=== PATIENT | male | born 1980 | race Caucasian/White ===

== ENCOUNTER 2017-11-05 07:47 | Day surgery (SDC) | payer BC ==
[~2017-11-05 07:47] MED LIST: Lidocaine 2% 5 ML SDV ONE; Midazolam 1 MG/ML 2 ML SDV ONE; Ondansetron 4 MG/2 ML SDV ONE; Propofol 200 MG/20 ML SDV ONE; fentaNYL 100 MCG/2 ML SDV ONE
[2017-11-05] MEDS ORDERED: Lactated Ringers 1,000 ML IV SCH (08:00)
[2017-11-05] MEDS ORDERED: Acetaminophen/HYDROcodone 325-5 MG Tab PO PRN (08:00)
[2017-11-05] MEDS ORDERED: Bupivacaine 0.25%/EPINEPHrine 1:200,000 10 ML SDV INJECT ONE (08:00)
[2017-11-05] MEDS ORDERED: Clindamycin Phosphate in D5W 600 MG in Premix Bag 1 BAG IV ONE ×2 (08:00)
[2017-11-05] MEDS ORDERED: Bupivacaine 25%/EPINEPHrine/PF 30 ML ONE (08:05)
--- NOTE | 2017-11-05 08:27 | PCM.PREANE ---
Preanesthetic Assessment - Anesthesia/Transfusion/Family Hx Anesthesia History: No Prior Anesthesia Family History of Anesthesia Reaction: No Transfusion History: No Prior Transfusion(s) Intubation History: Unknown - Review of Systems General: No Symptoms Pulmonary: No Symptoms Cardiovascular: No Symptoms Gastrointestinal: No Symptoms Neurological: No Symptoms Other: Reports: None - Physical Assessment O2 Sat by Pulse Oximetry: 96 Respiratory Rate: 16 Vital Signs: Last Vital Signs Temp 36.2 C 11/05/17 08:10 Pulse 74 11/05/17 08:08 Resp 16 11/05/17 08:08 BP 129/87 11/05/17 08:08 Pulse Ox 96 11/05/17 08:08 Height: 1.85 m Weight: 95.254 kg ASA Class: 2 Mental Status: Alert & Oriented x3 Airway Class: Mallampati = 2 Dentition: Reports: Normal Dentition Thyro-Mental Finger Breadths: 3 Mouth Opening Finger Breadths: 3 ROM/Head Extension: Full Lungs: Clear to Auscultation, Normal Respiratory Effort Cardiovascular: Regular Rate, Regular Rhythm - Allergies Allergies/Adverse Reactions: Allergies Allergy/AdvReac Type Severity Reaction Status Date / Time levofloxacin Allergy Shaking Verified 11/04/17 13:18 Penicillins Allergy Cannot Verified 11/04/17 13:18 Remember - Blood Blood Available: No - Anesthesia Plan Pre-Op Medication Ordered: None - Acknowledgements Anesthesia Type Planned: General Anesthesia Pt an Appropriate Candidate for the Planned Anesthesia: Yes Alternatives and Risks of Anesthesia Discussed w Pt/Guardian: Yes Pt/Guardian Understands and Agrees with Anesthesia Plan: Yes PreAnesthesia Questionnaire HEENT History: Reports: Hard of Hearing (sensorineural, bilateral) Musculoskeletal History: Reports: Fracture Other Musculoskeletal History: hx of fx leg, ankle and fingers Psychiatric History: Reports: Anxiety - Past Surgical History Musculoskeletal Surgical History: Reports: Other (See Below) (C/R right leg fracture as child) - SUBSTANCE USE Smoking Status *Q: Never Smoker Recreational Drug Use History: No - HOME MEDS Home Medications: Home Meds . [No Known Home Meds] 11/04/17 [History] - CURRENT (IN HOUSE) MEDS Current Meds: Current Medications Hydrocodone Bitart/Acetaminophen (Stewardson 325-5 Mg) 1 tab PO Q4H PRN PRN Reason: Pain Lactated Ringer's (Ringers, Lactated) 1,000 mls @ 125 mls/hr IV ASDIRECTED MOHINI Last Admin: 11/05/17 08:07 Dose: 125 mls/hr Discontinued Medications Bupivacaine HCl/Epinephrine Bitart (Marcaine 0.25%/Epinephrine 1:200,000) 10 ml INJECT ONETIME ONE Stop: 11/05/17 08:01 Fentanyl (Sublimaze) Confirm Administered Dose 100 mcg .ROUTE .STK-MED ONE Stop: 11/05/17 07:24 Clindamycin Phosphate 600 mg/ (Premix) 50 mls @ 150 mls/hr IV ONETIME ONE Stop: 11/05/17 08:19 Last Admin: 11/05/17 08:21 Dose: 150 mls/hr Bupivacaine HCl/Epinephrine Bitart (Sensorc Mpf 0.25%-Epi 1:476100) Confirm Administered Dose 30 mls @ as directed .ROUTE .STK-MED ONE Stop: 11/05/17 08:06 Lidocaine (Xylocaine-Mpf 2%) Confirm Administered Dose 5 ml .ROUTE .STK-MED ONE Stop: 11/05/17 07:24 Midazolam HCl (Versed 1 Mg/Ml) Confirm Administered Dose 2 mg .ROUTE .STK-MED ONE Stop: 11/05/17 07:24 Ondansetron HCl (Zofran) Confirm Administered Dose 4 mg .ROUTE .STK-MED ONE Stop: 11/05/17 07:24 Propofol (Diprivan 20 Ml) Confirm Administered Dose 200 mg .ROUTE .STK-MED ONE Stop: 11/05/17 07:24
--- NOTE | 2017-11-05 10:09 | PCM.POSTAN ---
POST ANESTHESIA ASSESSMENT - MENTAL STATUS Mental Status: Alert, Oriented - RESPIRATORY Respiratory Status: Respiratory Rate WNL, Airway Patent, O2 Saturation Stable - CARDIOVASCULAR CV Status: Pulse Rate WNL, Blood Pressure Stable - GASTROINTESTINAL GI Status: No Symptoms - PAIN Pain Score: 3 - POST OP HYDRATION Hydration Status: Adequate & Stable - OBSERVATIONS Free Text/Narrative:: no anesthesia problems
--- NOTE | 2017-11-05 10:51 | PCM48HPAN ---
Post Anesthesia Note - EVALUATION WITHIN 48HRS OF ANESTHETIC Vital Signs in Normal Range: Yes Patient Participated in Evaluation: Yes Respiratory Function Stable: Yes Airway Patent: Yes Cardiovascular Function Stable: Yes Hydration Status Stable: Yes Pain Control Satisfactory: Yes Nausea and Vomiting Control Satisfactory: Yes Mental Status Recovered: Yes Resp Rate: 15 - COMMENTS/OBSERVATIONS Free Text/Narrative:: no anesthesia problems
--- NOTE | 2017-11-05 15:50 | PCM.OPNOTE ---
- General Post-Op/Procedure Note Date of Surgery/Procedure: 11/05/17 Operative Procedure(s): closed reduction pin fixation of the right small finger middle phalanx fracture Pre Op Diagnosis: right small finger middle phalanx fracture Post-Op Diagnosis: Same Anesthesia Technique: General LMA, Local Primary Surgeon: Berta Chicas Complications: None Condition: Good Free Text/Narrative:: Intake & Output 11/04/17 11/05/17 11/05/17 23:59 07:59 15:59 Intake Total 850 Balance 850
--- NOTE | 2017-11-07 18:22 | OR ---
SURGEON: BERTA CHICAS MD DATE OF PROCEDURE: 11/05/2017 PREOPERATIVE DIAGNOSIS: Right small finger middle phalanx fracture, intra-articular, unstable. POSTOPERATIVE DIAGNOSIS: Right small finger middle phalanx fracture, intra-articular, unstable. PROCEDURE: Closed reduction, pin fixation of the right small finger middle phalanx fracture. PRIMARY SURGEON: Berta Chicas MD CON[employer]CTION [employer]ER: None. ANESTHESIA: General LMA local. INDICATIONS: Mr. Martinez is a 37-year-old gentleman with a right small finger middle phalanx fracture. It is inherently unstable and intra-articular. We discussed possible needs for treatment including internal fixation and open reduction internal fixation. My recommendation is pin fixation and attempting to align the joint surfaces of the site. Risks and benefits were discussed including, but not limited to, bleeding, infection, damage to underlying or overlying structures, possible need for future interventions, and possible scarring. PROCEDURE IN DETAIL: After informed consent was obtained and placed on the chart, the patient was brought to the operating theater and laid in the supine position. After adequate general LMA local anesthesia was obtained, the area was prepped and draped and a time-out was completed to confirm side and site. Attention was then paid to fluoroscopic examination and reduction of the fracture segment. Two 0.035 K-wires were placed in a crossed fashion and post reduction films were taken to ensure appropriate reduction and alignment of the joint surface. Once confirmed, attention was then paid to intravenous dressing with Jurgan balls and the patient was placed in a short-arm ulnar gutter splint. The patient tolerated this well. All counts and needles were correct at the end of the case. FOLLOWUP INSTRUCTIONS: The patient will see us in 10 to 14 days for custom splint, sooner if any problems, questions, or concerns. He was given a prescription for pain control. HEGGTHE / MODL /[id number]
--- NOTE | 2017-11-11 08:49 | CR ---
EXAMINATION: Unspecified hand HISTORY: Surgery COMPARISON: None TECHNIQUE: 4 fluoroscopic images provided FINDINGS/IMPRESSION: Operative control films demonstrate pin fixation of the mid fifth phalanx.
== END 2017-11-05 10:45 | disposition home or self-care (01) ==
LOC: MW.SDS 07:47
PROVIDERS: ATTEND Plastic Surgery
DX: S62.622A Displaced fracture of middle phalanx of right middle finger, initial encounter for closed fracture (principal); F41.9 Anxiety disorder, unspecified; Y93.67 Activity, basketball; Z88.0 Allergy status to penicillin; Z88.1 Allergy status to other antibiotic agents
CPT/HCPCS: 26735; 76000; J2250; J2405; J3010; J7120; J2704